=== PATIENT | male | born 1985 | race Caucasian/White ===

== ENCOUNTER 2018-11-01 15:36 | Emergency (ER) | payer SELFPAY ==
--- NOTE | 2018-11-01 16:02 | EDM.PDOC ---
ED HPI GENERAL MEDICAL PROBLEM - General Chief Complaint: Eye Problems Stated Complaint: PINK EYE Time Seen by Provider: 11/01/18 15:59 Source of Information: Reports: Patient History Limitations: Reports: No Limitations - History of Present Illness INITIAL COMMENTS - FREE TEXT/NARRATIVE: HISTORY AND PHYSICAL: History of present illness: Patient is a 33-year-old male who presents to the emergency room with complaints of bilateral eye irritation and drainage. He states he has multiple children and his home who have pinkeye and currently are being treated. He states he woke up this morning with his eyes matted shut, green drainage from both eyes and scleral injection bilaterally. He denies any fever, chills, chest pain, shortness of breath or cough. Denies any abdominal pain, nausea, vomiting , diarrhea or constipation. He does not wear contact lenses or glasses. Denies any recent eye trauma Review of systems: As per history of present illness and below otherwise all systems reviewed and negative. Past medical history: As per history of present illness and as reviewed below otherwise noncontributory. Surgical history: As per history of present illness and as reviewed below otherwise noncontributory. Social history: See social history for further information Family history: As per history of present illness and as reviewed below otherwise noncontributory. Physical exam: General: Well-developed and well-nourished 33-year-old male. Alert and oriented. Nontoxic appearing and in no acute distress. HEENT: Atraumatic, normocephalic, pupils equal and reactive bilaterally, negative for scleral icterus, bilateral scleral injection with green drainage noted along the lower lash line, no nystagmus, cardinal patterson of gaze intact, mucous membranes moist, TMs normal bilaterally, throat clear, neck supple, nontender, trachea midline. No drooling or trismus noted. No meningeal signs. No hot potato voice noted. Lungs: Clear to auscultation, breath sounds equal bilaterally, chest nontender. Heart: S1S2, regular rate and rhythm without overt murmur Abdomen: Soft, nondistended, nontender Pelvis: Stable nontender. Genitourinary: Deferred. Rectal: Deferred. Skin: Intact, warm, dry. No lesions or rashes noted. Extremities: Atraumatic, moves all per self without difficulty or deficits. Neurovascular unremarkable. Neuro: Awake, alert, oriented. Cranial nerves II through XII unremarkable. Cerebellum unremarkable. Motor and sensory unremarkable throughout. Exam nonfocal. Notes: Supportive care measures were reviewed and discussed. Voices understanding and is agreeable to plan of care. Denies any further questions or concerns at this time. Diagnostics: None Therapeutics: None Prescription: Polytrim Impression: Bacterial conjunctivitis, bilateral Plan: 1. Use the antibiotic eye prescription as directed. 2. Make sure you're good handwashing. Avoid placing the dropper in the eye as this can cause spread/contamination. 3. Follow-up with the bobbin hauler as we discussed. Return to the ED as needed and as discussed. Definitive disposition and diagnosis as appropriate pending reevaluation and review of above. bilateral eyes Pain Score (Numeric/FACES): 7 - Related Data Allergies Allergy/AdvReac Type Severity Reaction Status Date / Time No Known Allergies Allergy Verified 11/01/18 15:58 Home Meds: Home Meds Polymyxin B Sulf/Trimethoprim [Polytrim Eye Drops] 1 drop EYEBOTH 5XDAY 7 Days # 1 bottle 11/01/18 [Rx] ED ROS GENERAL - Review of Systems Review Of Systems: ROS reveals no pertinent complaints other than HPI. ED EXAM GENERAL W FULL EYE - Physical Exam Exam: See Below (See dictation) Course - Vital Signs Last Recorded V/S: Last Vital Signs Temp 98.1 F 11/01/18 15:55 Pulse 84 11/01/18 15:55 Resp 16 11/01/18 15:55 BP 170/87 H 11/01/18 15:55 Pulse Ox 97 11/01/18 15:55 Departure - Departure Time of Disposition: 16:10 Disposition: Home, Self-Care 01 Clinical Impression: Conjunctivitis Qualifiers: Conjunctivitis type: acute Acute conjunctivitis type: bacterial Laterality: bilateral Qualified Code(s): H10.33 - Unspecified acute conjunctivitis, bilateral - Discharge Information Prescriptions: Polymyxin B Sulf/Trimethoprim [Polytrim Eye Drops] 1 drop EYEBOTH 5XDAY 7 Days # 1 bottle Instructions: Bacterial Conjunctivitis, [id number] Forms: ED Department Discharge Additional Instructions: The following information is given to patients seen in the emergency department who are being discharged to home. This information is to outline your options for follow-up care. We provide all patients seen in our emergency department with a follow-up referral. The need for follow-up, as well as the timing and circumstances, are variable depending upon the specifics of your emergency department visit. If you don't have a primary care physician on staff, we will provide you with a referral. We always advise you to contact your personal physician following an emergency department visit to inform them of the circumstance of the visit and for follow-up with them and/or the need for any referrals to a consulting specialist. The emergency department will also refer you to a specialist when appropriate. This referral assures that you have the opportunity for follow-up care with a specialist. All of these measure are taken in an effort to provide you with optimal care, which includes your follow-up. Under all circumstances we always encourage you to contact your private physician who remains a resource for coordinating your care. When calling for follow-up care, please make the office aware that this follow-up is from your recent emergency room visit. If for any reason you are refused follow-up, please contact the [facility] Emergency Department at and asked to speak to the emergency department charge nurse. [facility] [address] [place] [id number] [address] 1. Use the antibiotic eye prescription as directed. 2. Make sure you're good handwashing. Avoid placing the dropper in the eye as this can cause spread/contamination. 3. Follow-up with the bobbin hauler as we discussed. Return to the ED as needed and as discussed.
== END 2018-11-01 16:22 | disposition home or self-care (01) ==
LOC: MW.ED 15:36
DX: H10.33 Unspecified acute conjunctivitis, bilateral (principal)
CPT/HCPCS: 99282; 99283